=== PATIENT | male | born 1940 | race Caucasian/White ===

== ENCOUNTER 2016-05-13 12:51 | Outpatient (CLI) | payer MEDICARE, OTHER ==
[2016-05-14 10:50] LABS: ALT (SGPT) 12 U/L (0-55); AST (SGOT) 19 U/L (5-34); Alkaline Phosphatase 77 U/L (40-150); Anion Gap 14 mmol/L (10-20); BUN (Urea Nitrogen) 15 mg/dL (8.4-25.7); Bilirubin, Direct 0.2 mg/dL (0.1-0.3); Bilirubin, Total 0.3 mg/dL (0.2-1.2); Calc. Creatinine Clearance 0 mL/min (70-130); Calcium 9.1 mg/dL (7.8-10.44); Carbon Dioxide 27 mmol/L (23-31); Chloride 104 mmol/L (98-107); Estimated GFR-MDRD 57; LDL Cholesterol, Calculated 97 mg/dL; Protein, Total 6.5 g/dL (5.8-8.1)
[2016-05-14 11:00] LABS: Hemoglobin A1c 7.1 % (4.0-6.0)
[2016-05-14 12:38] LABS: #Lymphocytes 1.4 thou/uL (1.20-3.40); #Monocytes 0.6 thou/uL (0.11-0.59); #Neutrophils 2.2 thou/uL (1.40-6.50); %Basophils 0.6 % (0.0-1.0); %Eosinophils 5.4 % (0.0-10.0); %Lymphocytes 32.1 % (21.0-51.0); %Monocytes 12.6 % (0.0-10.0); Hematocrit 39.6 % (42.0-52.0); Red Blood Cell (RBC) Count 4.12 mill/uL (4.70-6.10); White Blood Cell (WBC) Count 4.4 thou/uL (4.8-10.8)
[2016-05-14 12:39] LABS: #Eosinphils 0.2 thou/uL (0.0-0.7)
== END 2016-05-13 12:52 | disposition home or self-care (01) ==
LOC: NAVSJIPCSP 12:51
PROVIDERS: ATTEND Internal Medicine
DX: E78.00 Pure hypercholesterolemia, unspecified (principal); E11.65 Type 2 diabetes mellitus with hyperglycemia; I10 Essential (primary) hypertension; E78.5 Hyperlipidemia, unspecified; Z79.899 Other long term (current) drug therapy
CPT/HCPCS: 36415; 80048; 80061; 80076; 83036; 84443; 85025

== ENCOUNTER 2020-12-09 20:46 | Emergency (ER) | payer OTHER, MEDICARE ==
[2020-12-09 21:04] LABS: #Basophils 0.1 thou/uL (0.0-0.2); #Eosinphils 0.2 thou/uL (0.0-0.7); #Lymphocytes 3.1 thou/uL (1.20-3.40); #Neutrophils 4.3 thou/uL (1.40-6.50); %Basophils 0.7 % (0.0-1.0); %Eosinophils 2.6 % (0.0-10.0); %Lymphocytes 36.1 % (21.0-51.0); %Monocytes 11.2 % (0.0-10.0); %Neutrophils 49.5 % (42.0-75.0); Hemoglobin 13.1 g/dL (14.0-18.0); Mean Corpuscular HGB CONC 31.1 g/dL (32.0-36.0); Mean Corpuscular Hemoglobin 30.5 pg (27.0-31.0); Mean Corpuscular Volume 98.1 fL (78.0-98.0); Platelet Count 160 thou/uL (130-400); Red Blood Cell (RBC) Count 4.29 mill/uL (4.70-6.10); White Blood Cell (WBC) Count 8.7 thou/uL (4.8-10.8)
[2020-12-09] MEDS ORDERED: Sodium Chloride 0.9% 1,000 ML ONE (21:04)
[2020-12-09] MEDS ORDERED: Morphine 4 MG/ML VIAL ONE ×2 (21:04→23:29)
[2020-12-09 21:12] LABS: INR-International Normal Ratio 1.5; Prothrombin Time 18.2 sec (12.0-14.7)
[2020-12-09 21:13] LABS: PTT 37.8 sec (22.9-36.1)
[2020-12-09 21:20] LABS: ALT (SGPT) 19 U/L (8-55); AST (SGOT) 25 U/L (5-34); Albumin 4.1 g/dL (3.4-4.8); Alkaline Phosphatase 57 U/L (40-110); Anion Gap 17 mmol/L (10-20); BUN (Urea Nitrogen) 22 mg/dL (8.4-25.7); Bilirubin, Total 1.1 mg/dL (0.2-1.2); Calc. Creatinine Clearance 0 mL/min (70-130); Calcium 9.7 mg/dL (7.8-10.44); Carbon Dioxide 23 mmol/L (23-31); Chloride 105 mmol/L (98-107); Globulin 3.3 g/dL (2.4-3.5); Glucose 122 mg/dL (83-110); Lipase 34 U/L (8-78); Potassium 4.9 mmol/L (3.5-5.1); Protein, Total 7.4 g/dL (5.8-8.1); Sodium 140 mmol/L (136-145)
[2020-12-09] MEDS ORDERED: Ondansetron PF 4 MG/2 ML Vial ONE (21:30)
[2020-12-09] MEDS ORDERED: Boostrix 0.5 ML (Tdap) VIAL ONE (22:19)
[2020-12-09] MEDS ORDERED: Lidocaine 1% (PF) 30 ML VIAL ONE (22:24)
== END 2020-12-10 00:45 | disposition short-term general hospital (02) ==
LOC: NAV ERS 20:46
DX: S22.31XA Fracture of one rib, right side, initial encounter for closed fracture (principal); S12.000A Unspecified displaced fracture of first cervical vertebra, initial encounter for closed fracture; S01.01XA Laceration without foreign body of scalp, initial encounter; S40.021A Contusion of right upper arm, initial encounter; D68.9 Coagulation defect, unspecified; I10 Essential (primary) hypertension; E78.00 Pure hypercholesterolemia, unspecified; E11.9 Type 2 diabetes mellitus without complications; Z87.891 Personal history of nicotine dependence; Z79.01 Long term (current) use of anticoagulants; Z79.899 Other long term (current) drug therapy; Z79.84 Long term (current) use of oral hypoglycemic drugs; Z23 Encounter for immunization; V84.5XXA Driver of special agricultural vehicle injured in nontraffic accident, initial encounter; Y92.410 Unspecified street and highway as the place of occurrence of the external cause
CPT/HCPCS: 12002; 70450; 71045; 71260; 72125; 74177; 80053; 83605; 83690; 85025; 85610; 85730; 90471; 90715; 96374; 96375; 96376; J2001; J2270; J2405; J7050

== ENCOUNTER 2022-02-23 16:31 | Emergency (ER) | payer MEDICARE ==
[2022-02-23 17:22] LABS: Bilirubin Negative (Negative); Blood, Urine Large (Negative); Clarity Hazy (Clear); Glucose, Urine (Dipstick) >=1000 mg/dL (Negative); Ketone, Urine 15 mg/dL (Negative); Leukocyte Negative (Negative); Nitrite Negative (Negative); Protein, Urine (Dipstick) 30 mg/dL (Neg-Trace); Urobilinogen 0.2 mg/dL (Less than 2)
[2022-02-23 17:26] LABS: RBC/HPF Greater than 50 HPF (0-3); WBC/HPF 0-3 HPF (0-3)
[2022-02-23] MEDS ORDERED: Dicyclomine 20 MG TAB ONE (17:28)
[2022-02-23] MEDS ORDERED: Sodium Chloride 0.9% 1,000 ML ONE (17:28)
[2022-02-23 17:37] LABS: #Eosinphils 0.1 thou/uL (0.0-0.7); #Lymphocytes 0.9 thou/uL (1.20-3.40); #Neutrophils 7.5 thou/uL (1.40-6.50); %Basophils 0.3 % (0.0-1.0); %Eosinophils 0.9 % (0.0-10.0); %Lymphocytes 9.7 % (21.0-51.0); %Monocytes 10.5 % (0.0-10.0); %Neutrophils 78.7 % (42.0-75.0); Hemoglobin 10.9 g/dL (14.0-18.0); Mean Corpuscular HGB CONC 31.5 g/dL (32.0-36.0); Mean Corpuscular Hemoglobin 30.8 pg (27.0-31.0); Mean Corpuscular Volume 97.8 fl (78.0-98.0); Mean Platelet Volume 6.7 fL (7.4-10.4); Platelet Count 194 10x3/uL (130-400); Red Blood Cell (RBC) Count 3.54 mill/uL (4.70-6.10); White Blood Cell (WBC) Count 9.6 10x3/uL (4.8-10.8)
[2022-02-23 18:01] LABS: ALT (SGPT) 18 U/L (8-55); AST (SGOT) 31 U/L (5-34); Albumin 3.8 g/dL (3.4-4.8); Alkaline Phosphatase 67 U/L (40-110); Anion Gap 17 mmol/L (10-20); BUN (Urea Nitrogen) 25 mg/dL (8.4-25.7); Bilirubin, Total 0.8 mg/dL (0.2-1.2); Calc. Creatinine Clearance 0 mL/min (70-130); Calcium 9.8 mg/dL (7.8-10.44); Carbon Dioxide 23 mmol/L (23-31); Chloride 99 mmol/L (98-107); Estimated GFR 42; Glucose 166 mg/dL (83-110); Lipase 15 U/L (8-78); Potassium 4.8 mmol/L (3.5-5.1); Protein, Total 6.8 g/dL (5.8-8.1); Sodium 134 mmol/L (136-145)
[2022-02-23 21:32] LABS: SARS-CoV-2 NAA Rapid Test Not Detected (NotDetected)
== END 2022-02-23 21:14 | disposition short-term general hospital (02) ==
LOC: NAV ERS 16:31
DX: N28.89 Other specified disorders of kidney and ureter (principal); E11.9 Type 2 diabetes mellitus without complications; E78.00 Pure hypercholesterolemia, unspecified; I10 Essential (primary) hypertension; Z87.891 Personal history of nicotine dependence; Z20.822 Contact with and (suspected) exposure to COVID-19; Z79.84 Long term (current) use of oral hypoglycemic drugs; Z79.899 Other long term (current) drug therapy
CPT/HCPCS: 74176; 80053; 83690; 85025; 87086; 96360; 96361; 99285; U0002; 81003; 81015; J7050

== ENCOUNTER 2022-03-30 07:29 | Emergency (ER) | payer MEDICARE ==
[2022-03-30 08:12] LABS: #Basophils 0.2 thou/uL (0.0-0.2); #Eosinphils 0.3 thou/uL (0.0-0.7); #Lymphocytes 1.2 thou/uL (1.20-3.40); #Monocytes 1.5 thou/uL (0.11-0.59); #Neutrophils 10.8 thou/uL (1.40-6.50); %Basophils 1.1 % (0.0-1.0); %Eosinophils 1.9 % (0.0-10.0); %Lymphocytes 8.5 % (21.0-51.0); %Monocytes 10.7 % (0.0-10.0); %Neutrophils 77.8 % (42.0-75.0); Hemoglobin 10.1 g/dL (14.0-18.0); Mean Corpuscular HGB CONC 32.1 g/dL (32.0-36.0); Mean Corpuscular Hemoglobin 29.9 pg (27.0-31.0); Mean Platelet Volume 5.6 fL (7.4-10.4); Platelet Count 259 10x3/uL (130-400); RBC Distribution Width 15.2 % (11.5-14.5); Red Blood Cell (RBC) Count 3.39 mill/uL (4.70-6.10); White Blood Cell (WBC) Count 13.9 10x3/uL (4.8-10.8)
[2022-03-30 08:26] LABS: ALT (SGPT) 138 U/L (8-55); AST (SGOT) 150 U/L (5-34); Albumin 3.2 g/dL (3.4-4.8); Alkaline Phosphatase 92 U/L (40-110); Anion Gap 17 mmol/L (10-20); BUN (Urea Nitrogen) 35 mg/dL (8.4-25.7); Bilirubin, Total 0.8 mg/dL (0.2-1.2); Calc. Creatinine Clearance 0 mL/min (70-130); Calcium 9.7 mg/dL (7.8-10.44); Chloride 95 mmol/L (98-107); Estimated GFR 37; Globulin 3.6 g/dL (2.4-3.5); Glucose 169 mg/dL (83-110); Lipase 11 U/L (8-78); Potassium 5.8 mmol/L (3.5-5.1); Protein, Total 6.8 g/dL (5.8-8.1)
[2022-03-30 08:28] LABS: Carbon Dioxide 20 mmol/L (23-31); Sodium 126 mmol/L (136-145)
[2022-03-30] MEDS ORDERED: Digoxin 0.5 MG/2 ML AMP ONE (09:47)
== END 2022-03-30 10:30 | disposition short-term general hospital (02) ==
LOC: NAV ERS 07:29
DX: I48.91 Unspecified atrial fibrillation (principal); I12.9 Hypertensive chronic kidney disease with stage 1 through stage 4 chronic kidney disease, or unspecified chronic kidney disease; E11.22 Type 2 diabetes mellitus with diabetic chronic kidney disease; N18.9 Chronic kidney disease, unspecified; C79.00 Secondary malignant neoplasm of unspecified kidney and renal pelvis; E87.1 Hypo-osmolality and hyponatremia; E87.5 Hyperkalemia; E78.00 Pure hypercholesterolemia, unspecified; Z87.891 Personal history of nicotine dependence
CPT/HCPCS: 71045; 80053; 83690; 83880; 84484; 85025; 85379; 93005; J1160; J7620